=== PATIENT | female | born 1955 | race Caucasian/White ===

== ENCOUNTER 2021-08-06 02:07 | Inpatient (IN) | payer MEDICARE ==
[~2021-08-06] VITALS: Ht 177.8 cm; Wt 90.7 kg
[2021-08-06] MEDS ORDERED: ONDANSETRON HCL4 MG PO (05:14)
[2021-08-06] MEDS ORDERED: PROTONIX 40 MG40 M1 PO (05:14)
[2021-08-06] MEDS ORDERED: DESYREL 50 MG T50 MG PO (05:16)
[2021-08-06] MEDS ORDERED: LEVOTHYROXINE88 MCG PO (05:16)
[2021-08-06] MEDS ORDERED: HYDROCODON-ACE1 EAC2 PO (05:16)
[2021-08-06] MEDS ORDERED: GABAPENTIN600 MG PO (05:16)
[2021-08-06] MEDS ORDERED: CRESTOR20 MG PO (05:17)
[2021-08-06] MEDS ORDERED: ROPINIROLE HCL5 MG PO (05:17)
[2021-08-06] MEDS ORDERED: ELIQUIS 5 MG TAB5 MG PO (05:18)
[2021-08-06] MEDS ORDERED: ADVAIR 250-501 EACH INH (05:42)
[2021-08-06] MEDS ORDERED: PROVENTIL HFA6.7 GM INH (05:43)
[2021-08-06 10:58] LABS: HEMOGLOBIN 9.9 gm/dl (12.3-15.3); RED BLOOD COUNT 3.9 M/UL (4.00-5.10); WHITE BLOOD COUNT 4.9 K/UL (4.5-11.0)
[2021-08-06 12:41] LABS: BUN/CREATININE RATIO 21 (0-10)
[2021-08-06] MEDS ORDERED: LASIX20 MG PO (16:09)
[2021-08-06] MEDS ORDERED: ZYRTEC10 MG PO (16:10)
[2021-08-06] MEDS ORDERED: VITAMIN D350 MC3 PO (16:10)
[2021-08-06] MEDS ORDERED: DULCOLAX5 MG PO (16:10)
[2021-08-06] MEDS ORDERED: MECLIZINE HCL25 MG PO (16:11)
[2021-08-06] MEDS ORDERED: IPRAT-ALBUT 0.5-3 ML INH (16:11)
[2021-08-06] MEDS ORDERED: NITROSTAT 0.4100 TAB SL (16:13)
[2021-08-07 06:59] LABS: HEMOGLOBIN 9.9 gm/dl (12.3-15.3); RED BLOOD COUNT 4.05 M/UL (4.00-5.10)
[2021-08-07 07:13] LABS: BUN/CREATININE RATIO 19 (0-10)
[2021-08-09 08:02] LABS: HEMOGLOBIN 8.9 gm/dl (12.3-15.3); WHITE BLOOD COUNT 5.2 K/UL (4.5-11.0)
[2021-08-09 08:04] LABS: RED BLOOD COUNT 3.62 M/UL (4.00-5.10)
[2021-08-09 08:12] LABS: BUN/CREATININE RATIO 22 (0-10)
[2021-08-10 06:32] LABS: HEMOGLOBIN 8.9 gm/dl (12.3-15.3); RED BLOOD COUNT 3.54 M/UL (4.00-5.10); WHITE BLOOD COUNT 6.5 K/UL (4.5-11.0)
[2021-08-10 06:46] LABS: BUN/CREATININE RATIO 35 (0-10)
[2021-08-11 09:33] LABS: HEMOGLOBIN 8.8 gm/dl (12.3-15.3); RED BLOOD COUNT 3.5 M/UL (4.00-5.10)
[2021-08-11 09:54] LABS: BUN/CREATININE RATIO 36 (0-10)
[2021-08-12 09:14] LABS: HEMOGLOBIN 7.9 gm/dl (12.3-15.3); WHITE BLOOD COUNT 7.1 K/UL (4.5-11.0)
[2021-08-12 09:21] LABS: BUN/CREATININE RATIO 39 (0-10)
[2021-08-12 09:24] LABS: RED BLOOD COUNT 3.14 M/UL (4.00-5.10)
[2021-08-13 07:52] LABS: RED BLOOD COUNT 2.88 M/UL (4.00-5.10)
[2021-08-13 08:16] LABS: WHITE BLOOD COUNT 4.3 K/UL (4.5-11.0)
[2021-08-13 08:31] LABS: BUN/CREATININE RATIO 20 (0-10)
--- NOTE | 2021-08-13 11:02 | NUR ---
no active bleeding noted
[2021-08-14 06:34] LABS: HEMOGLOBIN 8.6 gm/dl (12.3-15.3); WHITE BLOOD COUNT 3.9 K/UL (4.5-11.0)
[2021-08-14 06:35] LABS: RED BLOOD COUNT 3.36 M/UL (4.00-5.10)
[2021-08-14 06:52] LABS: BUN/CREATININE RATIO 22 (0-10)
[2021-08-15 06:56] LABS: HEMOGLOBIN 8.4 gm/dl (12.3-15.3); RED BLOOD COUNT 3.4 M/UL (4.00-5.10); WHITE BLOOD COUNT 4.4 K/UL (4.5-11.0)
[2021-08-15 07:21] LABS: BUN/CREATININE RATIO 23 (0-10)
[2021-08-15 15:31] LABS: HEMOGLOBIN 10.3 gm/dl (12.3-15.3)
[2021-08-15 15:42] LABS: RED BLOOD COUNT 4.05 M/UL (4.00-5.10); WHITE BLOOD COUNT 5.6 K/UL (4.5-11.0)
[2021-08-15 16:13] LABS: BUN/CREATININE RATIO 22 (0-10)
--- NOTE | 2021-08-15 16:13 | NUR ---
PATIENT RETURNED FROM SURGERY AT THIS TIME. VITAL SIGNS WNL. NO ACUTE DISTRESS NOTED. CALL GONZALEZ IN [facility].
[2021-08-16 07:26] LABS: HEMOGLOBIN 8.8 gm/dl (12.3-15.3)
[2021-08-16 07:42] LABS: RED BLOOD COUNT 3.39 M/UL (4.00-5.10); WHITE BLOOD COUNT 7.2 K/UL (4.5-11.0)
[2021-08-16 08:32] LABS: BUN/CREATININE RATIO 24 (0-10)
[2021-08-17 06:40] LABS: RED BLOOD COUNT 3.42 M/UL (4.00-5.10); WHITE BLOOD COUNT 7.6 K/UL (4.5-11.0)
[2021-08-17 07:10] LABS: BUN/CREATININE RATIO 19 (0-10)
--- NOTE | 2021-08-18 02:59 | NUR ---
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
[2021-08-18 05:06] LABS: HEMOGLOBIN 8.8 gm/dl (12.3-15.3); RED BLOOD COUNT 3.33 M/UL (4.00-5.10); WHITE BLOOD COUNT 6.3 K/UL (4.5-11.0)
[2021-08-18 05:27] LABS: BUN/CREATININE RATIO 18 (0-10)
[2021-08-19 05:13] LABS: HEMOGLOBIN 8.9 gm/dl (12.3-15.3); RED BLOOD COUNT 3.37 M/UL (4.00-5.10); WHITE BLOOD COUNT 5.2 K/UL (4.5-11.0)
[2021-08-19 05:30] LABS: BUN/CREATININE RATIO 15 (0-10)
[2021-08-20 07:16] LABS: HEMOGLOBIN 9.4 gm/dl (12.3-15.3); RED BLOOD COUNT 3.52 M/UL (4.00-5.10); WHITE BLOOD COUNT 4.3 K/UL (4.5-11.0)
[2021-08-20 07:35] LABS: BUN/CREATININE RATIO 16 (0-10)
[2021-08-20] MEDS ORDERED: FERROUS SULFAT325 M2 PO (09:25)
[2021-08-20] MEDS ORDERED: HYDROCODON-ACE1 EAC2 PO (09:25)
[2021-08-20] MEDS ORDERED: GABAPENTIN600 MG PO (09:25)
== END 2021-08-20 18:00 | DRG 521 ==
LOC: M/S 04:05
PROVIDERS: Internal Medicine; Nurse Practitioner Family; Orthopaedic Surgery; ADMIT Internal Medicine
PROC: 30233N1 Transfusion of Nonautologous Red Blood Cells into Peripheral Vein, Percutaneous Approach (ICD-10-PCS; 2021-08-13)
PROC: 0SRB0JZ Replacement of Left Hip Joint with Synthetic Substitute, Open Approach (ICD-10-PCS; 2021-08-15)
PROC: 0LS40ZZ Reposition Left Upper Arm Tendon, Open Approach (ICD-10-PCS; 2021-08-15)
PROC: 0RRK00Z Replacement of Left Shoulder Joint with Reverse Ball and Socket Synthetic Substitute, Open Approach (ICD-10-PCS; principal; 2021-08-15 14:00)
DX: S72.012A Unspecified intracapsular fracture of left femur, initial encounter for closed fracture (principal); G92.8 Other toxic encephalopathy; S42.202A Unspecified fracture of upper end of left humerus, initial encounter for closed fracture; D62 Acute posthemorrhagic anemia; R44.3 Hallucinations, unspecified; Z20.822 Contact with and (suspected) exposure to COVID-19; W01.0XXA Fall on same level from slipping, tripping and stumbling without subsequent striking against object, initial encounter; I48.91 Unspecified atrial fibrillation; J44.9 Chronic obstructive pulmonary disease, unspecified; F41.9 Anxiety disorder, unspecified; M54.9 Dorsalgia, unspecified; G89.29 Other chronic pain; M06.9 Rheumatoid arthritis, unspecified; Z88.0 Allergy status to penicillin; K59.00 Constipation, unspecified; E55.9 Vitamin D deficiency, unspecified; D63.8 Anemia in other chronic diseases classified elsewhere; G25.81 Restless legs syndrome; E66.9 Obesity, unspecified; E78.5 Hyperlipidemia, unspecified; I10 Essential (primary) hypertension; E03.9 Hypothyroidism, unspecified; D50.9 Iron deficiency anemia, unspecified; Z96.659 Presence of unspecified artificial knee joint; Z98.890 Other specified postprocedural states; Z90.89 Acquired absence of other organs; Z90.49 Acquired absence of other specified parts of digestive tract; Z88.2 Allergy status to sulfonamides; Z88.5 Allergy status to narcotic agent; Z79.01 Long term (current) use of anticoagulants; Z79.899 Other long term (current) drug therapy; Z79.52 Long term (current) use of systemic steroids
CPT/HCPCS: 36415; 70450; 72100; 73030; 73200; 73502; 73560; 73600; 73610; 73620; 73700; 76000; 80048; 80053; 81001; 82140; 82550; 83036; 83540; 83550; 83735; 83880; 84100; 85025; 85027; 85610; 85730; 86850; 86900; 86901; 86920; 87081; 93005; 94640; 94664; 94760; 97162; 97166; 97530; 97530-GP-CQ; 97535; C1713; C1776; J0592; J0690; J1100; J1170; J1644; J1650; J1756; J2250; J2270; J2405; J2704; J2710; J2795; J3010; J3370; J7030; J7050; J7120; P9016; U0002

== ENCOUNTER → 2022-02-08 | Outpatient (CLI) | payer MEDICARE ==
[~2022-02-08] MED LIST: ADVAIR 250-501 EACH INH; CRESTOR20 MG PO; DESYREL 50 MG T50 MG PO; DULCOLAX5 MG PO; ELIQUIS 5 MG TAB5 MG PO; FERROUS SULFAT325 M2 PO; GABAPENTIN600 MG PO; HYDROCODON-ACE1 EAC2 PO; IPRAT-ALBUT 0.5-3 ML INH; LASIX20 MG PO; LEVOTHYROXINE88 MCG PO; MECLIZINE HCL25 MG PO; NITROSTAT 0.4100 TAB SL; ONDANSETRON HCL4 MG PO; PROTONIX 40 MG40 M1 PO; PROVENTIL HFA6.7 GM INH; ROPINIROLE HCL5 MG PO; VITAMIN D350 MC3 PO; ZYRTEC10 MG PO
== END ==
LOC: KOH-I 11:04
DX: M50.121 Cervical disc disorder at C4-C5 level with radiculopathy (principal)
CPT/HCPCS: 72141